=== PATIENT | male | born 2000 | race Caucasian/White ===

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

== ENCOUNTER → 2022-03-05 | Outpatient (REF) | payer OTHER | LOC: M LAB REF 17:51 | PROVIDERS: ATTEND Physician Assistant | DX: J06.9 Acute upper respiratory infection, unspecified (principal) ==

== ENCOUNTER → 2024-01-10 | Outpatient (REF) | payer BC, OTHER ==
[2024-01-10 21:28] LABS: RSV AMPLIFICATION NEGATIVE (NEGATIVE)
== END ==
LOC: M LAB REF 19:50
PROVIDERS: ATTEND Physician Assistant
DX: Z20.828 Contact with and (suspected) exposure to other viral communicable diseases (principal)

== ENCOUNTER → 2024-12-29 | Outpatient (REF) | payer BC | LOC: M LAB REF 18:41 | PROVIDERS: ATTEND Physician Assistant Medical | DX: B34.9 Viral infection, unspecified (principal) ==

== ENCOUNTER → 2025-04-11 | Outpatient (REF) | payer BC ==
[~2025-04-11] MED LIST: ACET-683 PO; ESCITALOPRAM; MAGICMW SSP
== END ==
LOC: M LAB REF 12:03
PROVIDERS: ATTEND Physician Assistant
DX: J06.9 Acute upper respiratory infection, unspecified (principal)

== ENCOUNTER 2025-04-12 19:26 | Emergency (ER) | payer BC ==
[~2025-04-12] VITALS: Ht 182.9 cm; Wt 80.5 kg
[2025-04-12] MEDS ORDERED: ACET-683 PO (19:32)
[2025-04-12] MEDS ORDERED: ESCITALOPRAM (19:36)
[2025-04-12 23:29] LABS: PLATELET COUNT, AUTOMATED 194 10^3/uL (150-450)
[2025-04-12] MEDS: NS (Normal Saline) 0.9% 1,000 ML IV ONE (23:47)
[2025-04-12] MEDS: ACETAMINOPHEN *IV* 1,000 MG in IV 1 EA IV ONE (23:47)
[2025-04-12] MEDS: IBUPROFEN 600 MG TAB PO ONE (23:48)
[2025-04-13 00:13] LABS: ALT/SGPT 343 U/L (7.0-40); AST/SGOT 282 U/L (<34)
[2025-04-13 00:31] LABS: ATYPICAL LYMPH 35 % (0-5); LYMPHOCYTES 12 % (16-44); MONOCYTES 9 % (0-5); NEUTROPHILS 43 % (28-66)
[2025-04-13 00:32] LABS: MONO SCRN NEGATIVE (NEGATIVE); PLATELET ESTIMATE NORMAL (NORMAL)
[2025-04-13] MEDS ORDERED: ISOVUE-370 76% 100 ML VIAL As Ordered ONE (00:55)
[2025-04-13 04:00] VITALS: TEMP 99.8
[2025-04-13] MEDS ORDERED: MAGICMW SSP (04:36)
[2025-04-13 04:45] VITALS: BP 130/70; O2SAT 98
== END 2025-04-13 04:55 | disposition home or self-care (01) ==
LOC: M ED 19:26
DX: B27.90 Infectious mononucleosis, unspecified without complication (principal); F10.10 Alcohol abuse, uncomplicated; K59.00 Constipation, unspecified; K76.0 Fatty (change of) liver, not elsewhere classified; Z79.1 Long term (current) use of non-steroidal anti-inflammatories (NSAID); Z79.899 Other long term (current) drug therapy
CPT/HCPCS: 71260; 74177; 80047; 80076; 83605; 83690; 85025; 86308; 87486; 87581; 87633; 87798; 93041; 96365; 99285; J0134; Q9967